=== PATIENT | male | born 1980 | race Two or more races ===

== ENCOUNTER 2023-12-26 10:31 | Inpatient (IN) | payer OTHER ==
[2023-12-26 11:22] VITALS: BMI 30.5
[2023-12-26] MEDS ORDERED: guaiFENesin 600 MG TABLET.ER (FP) PO PRN (13:11)
[2023-12-26] MEDS ORDERED: MAG HYDROX/AL HYDROX/SIMETH 30 ML UNIT-DOSE CUP PO PRN (13:11)
[2023-12-26] MEDS ORDERED: BENZOCAINE/MENTHOL (CHLORASEPTIC ) LOZENGE MM PRN (13:11)
[2023-12-26] MEDS ORDERED: IBUPROFEN 400 MG TABLET (FP) PO PRN (13:11)
[2023-12-26] MEDS ORDERED: MAGNESIUM HYDROX 2400MG/30ML ORAL SUSPENSION 30 ML CUP PO PRN (13:11)
[2023-12-26] MEDS ORDERED: IBUPROFEN 600 MG TABLET (FP) PO PRN (13:11)
[2023-12-26] MEDS ORDERED: NALOXONE (NARCAN) HCL 4 MG/0.1 ML SPRAY NS PRN (13:11)
[2023-12-26] MEDS ORDERED: LOPERAMIDE HCL 2 MG CAPSULE PO PRN (13:11)
[2023-12-26] MEDS ORDERED: POLYETHYLENE GLYCOL (HEALTHYLAX) 3350 17 GM PACKET PO PRN (13:11)
[2023-12-26] MEDS ORDERED: NALOXONE HCL 0.4 MG/ML VIAL IM PRN (13:11)
[2023-12-26] MEDS ORDERED: BENZONATATE 200 MG CAPSULE PO PRN (13:11)
[2023-12-26] MEDS ORDERED: ACETAMINOPHEN 325 MG TABLET (FP) PO PRN (13:11)
[2023-12-26] MEDS ORDERED: hydrOXYzine PAMOATE 25 MG CAPSULE (FP) PO PRN (13:11)
[2023-12-26] MEDS ORDERED: TUBERCULIN PPD 5 TU/0.1ML VIAL ID ONE (14:45)
[2023-12-26] MEDS: TUBERCULIN PPD 5 TU/0.1ML VIAL ID ONE (14:57)
[2023-12-26] MEDS ORDERED: TUBERCULIN PPD 5 TU/0.1ML SYRINGE (IN PATIENT USE ONLY) ID ONE (17:12)
[2023-12-26] MEDS: THIAMINE 100 MG TABLET PO SCH (21:48)
[2023-12-26] MEDS: MELATONIN 5 MG TABLETS PO SCH (21:48)
[2023-12-27] MEDS: PRENATAL VITAMINS W/ FOLIC ACID TABLET (FP) PO SCH (10:44)
[2023-12-27 11:58] LABS: EPI CELLS 15 /uL (0-25.1); HYALINE CASTS 6 /uL (0-3.1); URINE APPEARANCE CLOUDY; URINE BACTERIA 56 /uL (0-1359); URINE BILIRUBIN NEGATIVE (NEGATIVE); URINE COLOR DK YELLOW; URINE GLUCOSE (UA) NEGATIVE (NEGATIVE); URINE KETONE TRACE (NEGATIVE); URINE LEUK ESTERASE TRACE (NEGATIVE); URINE NITRITE NEGATIVE (NEGATIVE); URINE PROTEIN TRACE (NEGATIVE); URINE RBC 36 /uL (0-23.9); URINE WBC 33 /uL (0-25.8)
[2023-12-27 12:10] LABS: CHLORIDE 106 mmol/L (98-107); POTASSIUM 3.9 mmol/L (3.5-5.1); SODIUM 140 mmol/L (136-145)
[2023-12-27 12:13] LABS: HEMATOCRIT 40.1 % (35.4-49); HEMOGLOBIN 13.7 GM/dL (11.7-16.9); MCH 30.9 pg (25.7-33.7); MCHC 34.3 g/dl (32.0-35.9); MEAN CELL VOLUME 90.1 fl (80-96); MEAN PLT VOLUME 8.1 fl (7.5-11.1); PLATELET COUNT 217 10^3/uL (134-434); RBC 4.46 M/mm3 (4.00-5.60); RDW 13.5 % (11.9-15.9)
[2023-12-27 12:23] LABS: URINE CRYSTALS few CA oxalates /hpf
[2023-12-27 12:30] LABS: ALBUMIN 3.4 g/dl (3.4-5.0); ANION GAP 4 mmol/L (4-13); BLOOD UREA NITROGEN 16.1 mg/dL (7-18); CALCIUM 8.6 mg/dL (8.5-10.1); CO2 30 mmol/L (21-32); GLUCOSE,RANDOM 101 mg/dL (74-106)
[2023-12-27 12:33] LABS: CREATININE 0.9 mg/dL (0.55-1.3); SGOT/AST 36 U/L (15-37)
[2023-12-27 12:35] LABS: BILIRUBIN,TOTAL 0.4 mg/dL (0.2-1); SGPT/ALT 64 U/L (13-61); TOT PROT 6.4 g/dl (6.4-8.2)
[2023-12-27 12:36] LABS: ALK PHOS 97 U/L (45-117)
[2024-01-02] MEDS ORDERED: PRENATAL VITAMINS W/ FOLIC ACID TABLET (FP) PO PRN (15:40)
[2024-01-21 06:56] VITALS: RESP 18
[2024-01-23 06:52] VITALS: BP 103/65; PULSE 95; TEMP 97.3
== END 2024-01-23 09:12 | disposition home or self-care (01) | DRG 772 ==
LOC: YASAS 10:31 → Y3W 13:44
PROVIDERS: ADMIT Allergy & Immunology; ATTEND Psychiatry & Neurology Pain Medicine
PROC: HZ42ZZZ Group Counseling for Substance Abuse Treatment, Cognitive-Behavioral (ICD-10-PCS; principal; 2023-12-26)
DX: F14.20 Cocaine dependence, uncomplicated (principal); F12.10 Cannabis abuse, uncomplicated; F17.210 Nicotine dependence, cigarettes, uncomplicated; Z56.0 Unemployment, unspecified
CPT/HCPCS: 36415; 80053; 80305; 80307; 81003; 85027; 86780; 87811